=== PATIENT | male | born 1975 | race Caucasian/White ===

== ENCOUNTER 2023-08-24 11:28 | Emergency (ER) | payer OTHER ==
[~2023-08-24] VITALS: Ht 177.8 cm; Wt 102.3 kg
[2023-08-24] MEDS ORDERED: UPAD30TA PO (11:37)
[2023-08-24] MEDS ORDERED: UPAD15TA PO (14:30)
[2023-08-24] MEDS ORDERED: HOME MED LIST COMPLETE! XX SCH (14:30)
[2023-08-24] MEDS: ACETAMINOPHEN 325 MG TAB PO ONE (14:40)
[2023-08-24] MEDS: cefTRIAXone 500MG VIAL IM ONE (14:41)
[2023-08-24] MEDS ORDERED: DOXY-323 PO (14:42)
[2023-08-24 14:51] LABS: Trichomonas vaginalis (AMP) NOT DETECTED (NEGATIVE)
[2023-08-24 14:54] VITALS: BP 134/79; TEMP 100.4; O2SAT 96
[2023-08-24 15:14] LABS: GC DNA AMPLIFICATION NEGATIVE (NEGATIVE)
[2023-08-26] MEDS ORDERED: LEVO1TAB38 PO (08:16)
== END 2023-08-24 15:05 | disposition home or self-care (01) ==
LOC: M ED 11:28
DX: N30.10 Interstitial cystitis (chronic) without hematuria (principal); K46.9 Unspecified abdominal hernia without obstruction or gangrene; Z88.8 Allergy status to other drugs, medicaments and biological substances
CPT/HCPCS: 76870; 81001; 87088; 87186; 87661; 87810; 87850; 96372; 99283; J0696